=== PATIENT | female | born 1990 | race Caucasian/White ===

== ENCOUNTER 2023-09-12 12:08 | Emergency (ER) | payer BC ==
[2023-09-12] MEDS ORDERED: Potassium Chloride 20 MEQ Tab.ER PO ONE (12:52)
== END 2023-09-12 13:23 | disposition home or self-care (01) ==
LOC: JD.ED 12:08
DX: E87.6 Hypokalemia (principal); E83.42 Hypomagnesemia; J45.909 Unspecified asthma, uncomplicated; E03.9 Hypothyroidism, unspecified; F17.210 Nicotine dependence, cigarettes, uncomplicated; Z88.8 Allergy status to other drugs, medicaments and biological substances; Z88.2 Allergy status to sulfonamides; Z88.1 Allergy status to other antibiotic agents; Z79.899 Other long term (current) drug therapy
CPT/HCPCS: 36415; 83735; 93005; 99285; A9270; 93010; 99283

== ENCOUNTER 2024-07-19 15:15 | Emergency (ER) | payer BC ==
[2024-07-19] MEDS: Proparacaine 0.5% Ophth Soln 15 ML Bottle EYERT ONE (16:00)
[2024-07-19] MEDS: Fluorescein 1 MG Ophth Strip EYERT ONE (16:00)
== END 2024-07-19 16:18 | disposition home or self-care (01) ==
LOC: JD.ED 15:15
DX: S05.01XA Injury of conjunctiva and corneal abrasion without foreign body, right eye, initial encounter (principal); J45.909 Unspecified asthma, uncomplicated; E03.9 Hypothyroidism, unspecified; Z86.16 Personal history of COVID-19; Z88.8 Allergy status to other drugs, medicaments and biological substances; Z88.2 Allergy status to sulfonamides; Z88.1 Allergy status to other antibiotic agents; Z79.890 Hormone replacement therapy; Z79.899 Other long term (current) drug therapy; W50.4XXA Accidental scratch by another person, initial encounter
CPT/HCPCS: 99283; J3490

== ENCOUNTER 2025-03-07 08:19 | Emergency (ER) | payer OTHER ==
[2025-03-07 09:18] LABS: BASOPHILS PERCENT AUTO 0.7 % (0.0-1.0); EOSINOPHILS PERCENT AUTO 0.4 % (0.0-6.0); HEMATOCRIT 38.9 % (37.0-47.0); HEMOGLOBIN 13.6 gm/dl (12.0-16.0); IMMATURE GRAN ABSOLUTE AUTO 0.01 K/mm3 (0.00-0.05); IMMATURE GRAN PERCENT AUTO 0.4 % (0.0-0.4); LYMPHOCYTES ABSOLUTE AUTO 0.3 K/mm3 (1.0-4.8); LYMPHOCYTES PERCENT AUTO 11.2 % (24.0-44.0); MEAN CORPUSCULAR HEMOGLOBIN 35.2 pg (28.0-32.0); MEAN CORPUSCULAR VOLUME 100.8 fl (83.0-99.0); MEAN PLATELET VOLUME 10.9 fl (9.4-12.3); MONOCYTES ABSOLUTE AUTO 0.2 K/mm3 (0.0-0.8); MONOCYTES PERCENT AUTO 8.3 % (0.0-8.0); NEUTROPHILS ABSOLUTE AUTO 2.2 K/mm3 (1.8-7.7); PLATELET COUNT,PLT 106 K/mm3 (150-400); RED BLOOD CELL COUNT 3.86 M/mm3 (4.10-5.30); WHITE BLOOD CELL COUNT,WBC 2.76 K/mm3 (3.9-11.3)
[2025-03-07 09:31] LABS: INR 1.04
[2025-03-07 09:33] LABS: ALBUMIN 3.9 g/dl (3.4-5.0); BILIRUBIN TOTAL 0.8 mg/dL (0.2-1.0); BUN/CREATININE RATIO 7.1 (14-18); CALCIUM 9.2 mg/dL (8.5-10.1); CREATININE 0.7 mg/dL (0.55-1.02); EST CRCL DRUG DOSING (CG) 99.01 mL/min; MAGNESIUM 0.9 mg/dL (1.8-2.4)
[2025-03-07] MEDS: Magnesium Sulfate 2 GM/50 mL 2 GM/50 ML BAG IV ONE (09:41)
[2025-03-07] MEDS: LORazepam 2 MG/ML SDV IVPUSH ONE (09:42)
[2025-03-07] MEDS: Thiamine 200 MG/2 ML MDV IVPUSH ONE (09:42)
[2025-03-07] MEDS: Folic Acid 1 MG Tab PO ONE (09:42)
[2025-03-07] MEDS: Multivitamins with Minerals/Folic Acid/Lutein/Zeaxanth Tab PO STA (09:49)
[2025-03-07 11:23] LABS: SLIDE REVIEW ABNORMAL SMEAR
[2025-03-07] MEDS ORDERED: LORazepam 2 MG/ML SDV IVPUSH PRN (11:27)
[2025-03-07] MEDS: Magnesium Sulf/Wat 4 GM/50 mL 50 ML ONE (11:30)
[2025-03-07] MEDS ORDERED: Sodium Chloride 0.9% 1,000 ML ONE (11:33)
[2025-03-07] MEDS: Potassium Chloride 10 MEQ in Premix Bag 1 BAG IV SCH (11:47)
[2025-03-07] MEDS: Magnesium Sulf/Wat 4 GM/50 mL 4 GM in Premix Bag 1 BAG IV ONE (11:47)
== END 2025-03-07 14:05 | disposition home or self-care (01) ==
LOC: JD.ED 08:19
DX: F10.230 Alcohol dependence with withdrawal, uncomplicated (principal); E87.6 Hypokalemia; E83.42 Hypomagnesemia; D69.6 Thrombocytopenia, unspecified; R94.5 Abnormal results of liver function studies; E03.9 Hypothyroidism, unspecified; E78.5 Hyperlipidemia, unspecified; D69.59 Other secondary thrombocytopenia; Y90.9 Presence of alcohol in blood, level not specified
CPT/HCPCS: 36415; 80053; 80143; 80179; 80307; 83690; 83735; 85025; 85610; 93005; 96365; 96366; 96375; 96376; 99285; A9270; J2060; J3411; J3475; J3480; 93010; 99284